=== PATIENT | female | born 1995 | race Caucasian/White ===

== ENCOUNTER 2018-09-07 08:31 | Outpatient (CLI) | payer MEDICAID, SELFPAY ==
[2018-09-07 09:33] LABS: HCG Quant, Pregnancy 12697 mIU/mL (1-3)
== END 2018-09-07 08:51 ==
PROVIDERS: Visit Provider Nurse Practitioner Family
DX: Z32.01 Encounter for pregnancy test, result positive (principal); Z34.01 Encounter for supervision of normal first pregnancy, first trimester
CPT/HCPCS: 36415; 84702

== ENCOUNTER 2019-12-28 08:46 | Emergency (ER) | payer MEDICAID, SELFPAY ==
[2019-12-28 09:01] VITALS: BP 158/91; PULSE 100; RESP 16; TEMP 36.8; O2SAT 97
--- NOTE | 2019-12-28 09:08 | ED.GENADUL_ITS ---
Discharge Plan Disposition Patient Disposition: HOME Condition: Stable Discharge Details Chief Complaint: Sorethroat Clinical Impression: Pharyngitis Primary Care Provider: ArianeLocal ED Provider: Long Klein Home Meds and New Rx's Prescriptions: No Action No Known Home Meds RF: 0 Discharge Instructions Instructions: Pharyngitis (ED) Additional Instructions: Rapid strep is negative, culture is pending. [id number] medications as directed for symptomatic control. Practice good handwashing. Please watch for new or worsening symptoms and return to the ER for any concerns Medical Decision Making 24-year-old female presents with a week or 2 history of mild URI-like symptoms, dry cough, ear pain, sore throat. Primarily concerned of the sore throat. She appears well, nontoxic. She is afebrile. Her posterior pharynx is with minimal erythema but there are no exudates, swelling, and midline shifting. Airway is patent. Will obtain rapid strep test Rapid strep test negative, culture pending. Made patient aware of findings. Likely viral in nature. Will treat with [id number] medications. She is comfortable with this plan and has no additional questions or concerns HPI General Mode of arrival: ambulatory . Date/Time Provider Initiated Documentation: 12/28/19 08:53 . Limitations to Documentation: no limitations . Information obtained by: patient . HPI Narrative: 24-year-old female with no past medical history presents to the ER for a week or 2 of the sore throat, mild dry cough and right ear discomfort. She reports that she has had a positive strep throat contacts and is concerned that she may have the same. Has not taken any medications today for her symptoms. Denies any fever, neck pain, productive cough, nausea, vomiting, skin rash, bowel or bladder issues Related Data Home Medications Medication Instructions Recorded Confirmed Unknown [No Known Home Meds] 12/28/19 12/28/19 Allergies Allergy/AdvReac Type Severity Reaction Status Date / Time No Known Allergies Allergy Unverified 12/28/19 09:04 General Stated Complaint: Sorethroat MAGDIEL: 4 Review of Systems Constitutional Constitutional: Denies fever(s) Eyes Eyes: Denies eye discharge ENT Ears, Nose, Mouth, and Throat: Reports sore throat Cardiovascular Cardiovascular: Denies chest pain and Denies dyspnea Respiratory Respiratory: Reports cough and Denies dyspnea Gastrointestinal Gastrointestinal: Denies abdominal pain, Denies nausea and Denies vomiting Genitourinary Genitourinary: Denies dysuria Musculoskeletal Musculoskeletal: Denies myalgias Integumentary/Breasts Skin/Breast: Denies rash Exam Const General: cooperative, healthy appearing, comfortable and no acute distress Orientation: alert and awake [facility] Head: normal to inspection, normocephalic and atraumatic Ears: TM's normal bilaterally and EAC's normal Mouth: moist mucous membranes Throat: posterior oropharynx abnormal erythema (Mild); no edema and no exudates Eyes Conjunctivae: conjunctivae normal Neck Neck: normal visual inspection, full ROM, no lymphadenopathy, no meningeal signs, trachea midline and supple Resp Effort & Inspection: normal respiratory effort and able to speak in complete sentences Auscultation: clear to auscultation bilaterally Cardio Rate: regular rate Rhythm: regular rhythm Skin General skin exam: no rashes or lesions noted Neuro General: alert, awake, moves all extremities and no focal motor deficits Sensory Exam: no sensory deficits noted Psych Appearance: grossly normal Mental Status: mental status grossly normal Course Vital Signs Vital signs: Vital Signs Temperature 36.8 C 12/28/19 09:01 Pulse 100 H 12/28/19 09:01 Respiratory Rate 16 12/28/19 09:01 Blood Pressure 158/91 H 12/28/19 09:01 Pulse Oximetry 97 12/28/19 09:01 Temperature 36.8 C 12/28/19 09:01 Temperature Source Skin 12/28/19 09:01 Pulse 100 H 12/28/19 09:01 Respiratory Rate 16 12/28/19 09:01 Respiratory Effort Non-Labored 12/28/19 09:01 Blood Pressure 158/91 H 12/28/19 09:01 Blood Pressure Position Sitting 12/28/19 09:01 Pulse Oximetry 97 12/28/19 09:01 Oxygen Delivery Method Room Air 12/28/19 09:01 Oxygen Flow Rate 0 12/28/19 09:01 Pain Level 5 12/28/19 09:01
== END 2019-12-28 09:28 | disposition home or self-care (01) ==
PROVIDERS: Emergency Provider Physician Assistant
DX: J02.8 Acute pharyngitis due to other specified organisms (principal); R05 Cough
CPT/HCPCS: 87880; 99282; 87081

== ENCOUNTER 2020-05-11 14:30 | Emergency (ER) | payer MEDICAID, SELFPAY ==
[2020-05-11 14:38] VITALS: BP 119/79; PULSE 90; RESP 18; TEMP 36.4; O2SAT 97
--- NOTE | 2020-05-11 15:33 | DI.RAD_ITS ---
EXAM: XR PORTABLE CHEST AP CLINICAL HISTORY: SOB, Exposed to COVID TECHNIQUE: 2D digital imaging was performed. COMPARISON: No exams were available for comparison FINDINGS: MEDIASTINUM: Normal. HEART: Normal. PULMONARY VASCULATURE: Normal. LUNGS: Clear. PLEURAL SPACE: No pleural effusion or pneumothorax. BONE:Within normal limits for the patient's age. OTHER FINDINGS:Normal. IMPRESSION: No acute pulmonary findings. DATA REPOSITORY: RADIATION DOSE DELIVERED:
--- NOTE | 2020-05-11 15:55 | W.ED.GENAD ---
Discharge Plan Disposition Patient Disposition: HOME Condition: Good Discharge Details Chief Complaint: Sorethroat Clinical Impression: URI (upper respiratory infection) Primary Care Provider: Ariane,Local ED Provider: Jenny Sebastian Home Meds and New Rx's Prescriptions: No Action No Known Home Meds RF: 0 Discharge Instructions Instructions: Upper Respiratory Infection (ED) Additional Instructions: Continue to encourage water intake. Tylenol as needed for discomfort or fevers. You have been COVID-19 tested today. We will contact you with results. Please generally take 3 to 4 days to come back. If you do not hear, please call the hospital. Please continue to self quarantine to prevent the spread of infection. If you develop difficulty breathing, shortness of breath, chest pain or other new/worsening symptoms please seek care urgently once again. Please follow-up with primary care in the next 1 to 2 weeks if not improving. 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 She reports yesterday she had T-max of 99 ?F. States she began having cough, sore throat and body aches. She denies any GI upset. Patient is on Nexplanon and does not believe that she is . She reports that her primary concern is potential for COVID-19. She reports that her fianc? works with gentleman who is presumed COVID positive. Juan Pablo? also had similar illness and was recently tested and found to be negative for COVID-19. However, patient is requesting testing and needs to have this completed prior to being able to go back to work. She denies any chest pain, shortness of breath or difficulty breathing. Exam, patient appears to be resting comfortably. She appears to be in no respiratory distress stress. She is speaking in full sentences. No rash. Moist mucous membranes. No abnormalities in posterior oropharynx. No findings to suggest Streptococcus. No nuchal rigidity. Plan for x-ray given cough. FINDINGS: MEDIASTINUM: Normal. HEART: Normal. PULMONARY VASCULATURE: Normal. LUNGS: Clear. PLEURAL SPACE: No pleural effusion or pneumothorax. BONE:Within normal limits for the patient's age. OTHER FINDINGS:Normal. IMPRESSION: No acute pulmonary findings. Discussed these findings with the patient. At this point, patient appears nontoxic, stable vital signs and ready for discharge. She was COVID tested here. We will contact her with any results. She was given return precautions. Patient will quarantine until she has her results and recommendations. Advise follow-up with primary care if 1 week if not improving. All of her questions and concerns were addressed and she is been this plan. Work note will be given. HPI General Mode of arrival: ambulatory. Date/Time Provider Initiated Documentation: 05/11/20 14:43. Limitations to Documentation: no limitations. Information obtained by: patient and RN notes reviewed. History of Present Illness 25 year old F presents to the emergency department with the chief complaint of URI symptoms, described as moderate, with intensity rated at 7. Quality is described as aching (diffuse body aches), Patient reports no radiation. Patient started experiencing this day(s) (2) and it has been constant. No relieving factors improve symptom(s), No exacerbating factors reported . Patient notes cough and fever/chills (T max 99*F); denies chest pain, headaches, loss of appetite, nausea/vomiting, rash, shortness of breath and weakness. Patient did receive the following treatments prior to arrival, none Related Data Home Medications Medication Instructions Recorded Confirmed Unknown [No Known Home Meds] 12/28/19 12/28/19 Allergies Allergy/AdvReac Type Severity Reaction Status Date / Time No Known Allergies Allergy Unverified 12/28/19 09:04 General Stated Complaint: Sorethroat MAGDIEL: 3 Review of Systems Constitutional Constitutional: Reports as per HPI, Denies chills, Reports fatigue, Reports fever(s) and Denies headache(s) Eyes Eyes: Reports as per HPI, Denies eye discharge and Denies irritation ENT Ears, Nose, Mouth, and Throat: Reports as per HPI and Denies headache(s) Cardiovascular Cardiovascular: Reports as per HPI, Denies chest pain and Denies dyspnea Respiratory Respiratory: Reports as per HPI, Reports cough, Denies hemoptysis and Denies dyspnea Gastrointestinal Gastrointestinal: Reports as per HPI, Denies abdominal pain, Denies change in bowel habits, Denies nausea and Denies vomiting Integumentary/Breasts Skin/Breast: Reports as per HPI and Denies rash Neurologic Neurologic: Reports as per HPI and Denies headache(s) Endocrine Endocrine: Reports fatigue [facility] Social History Smoking/Tobacco Use Status: Former Tobacco Use Alcohol Intake: current Alcohol Intake frequency: holidays/special occasions only Drug use: Daily Substance use type: marijuana Do you feel safe at home: Yes Do you feel safe in your relationship?: Yes Exam Const General: cooperative, healthy appearing, comfortable, no acute distress, well developed and well groomed Nutritional Appearance: average body habitus and well nourished Orientation: alert and awake [facility] Head: normal to inspection, normocephalic and atraumatic Ears: hearing grossly normal bilaterally, external ears normal and TM's normal bilaterally General nose exam: external nose normal and nares normal Face and sinus: normal facial exam, sinuses nontender and face symmetric Mouth: oral mucosae normal, lip normal, tongue normal, oropharynx normal and moist mucous membranes Teeth and gingiva: dentition normal Throat: posterior oropharynx normal, tonsils normal and uvula midline Eyes General: appearance normal, both eyes and all related structures Neck Neck: normal visual inspection, full ROM, no lymphadenopathy and no meningeal signs Resp Effort & Inspection: normal respiratory effort, able to speak in complete sentences and no respiratory distress Cardio Rate: regular rate Rhythm: regular rhythm Skin General skin exam: no rashes or lesions noted Neuro General: patient alert and patient awake Cognition: normal cognition Speech: speech normal Gait: normal gait Psych Appearance: grossly normal and well kempt Mental Status: mental status grossly normal Speech and Movement: speech and movement normal Course Vital Signs Vital signs: Vital Signs Temperature 36.4 C L 05/11/20 14:38 Pulse 90 05/11/20 14:38 Respiratory Rate 18 05/11/20 14:38 Blood Pressure 119/79 05/11/20 14:38 Pulse Oximetry 97 05/11/20 14:38 Temperature 36.4 C L 05/11/20 14:38 Temperature Source Temporal Artery Scan 05/11/20 14:38 Pulse 90 05/11/20 14:38 Respiratory Rate 18 05/11/20 14:38 Respiratory Effort 05/11/20 14:45 Blood Pressure 119/79 05/11/20 14:38 Blood Pressure Position Sitting 05/11/20 14:38 Pulse Oximetry 97 05/11/20 14:38 Oxygen Delivery Method Room Air 05/11/20 14:38 Oxygen Flow Rate 0 05/11/20 14:38 Pain Level 7 05/11/20 14:38 Lab/Test Results Lab/Test Results: Laboratory Tests Range/Units 05/11/20 15:01 COVID-19 PCR Cancelled Nasopharyn COVID-19 PCR Cancelled Ref Test Perform Site Cancelled
[2020-05-11 16:22] VITALS: BP 119/79; PULSE 90; RESP 18; TEMP 36.4; O2SAT 97
--- NOTE | 2020-05-14 17:12 | NUR.NOTE ---
Nursing Note: Patient called inquiring about COVID results. Results still pending. Provided negative Strep results. Verified patient name and prior to releasing results.
[2020-05-15 21:51] LABS: SARS-CoV-2 RNA Undetected (Undetected); SARS-CoV-2 Specimen Source Nasopharynx
--- NOTE | 2020-05-17 13:24 | NUR.NOTE ---
pt called regarding covid test. negative result given to pt.Nursing Note:
== END 2020-05-11 16:30 | disposition home or self-care (01) ==
LOC: ER 16:51
PROVIDERS: Registered Nurse Emergency; Emergency Provider Physician Assistant
DX: J06.9 Acute upper respiratory infection, unspecified (principal); R50.9 Fever, unspecified; R05 Cough; Z11.59 Encounter for screening for other viral diseases
CPT/HCPCS: 87880; 99283; U0003; 71045; 87081

== ENCOUNTER 2021-01-14 08:09 | Emergency (ER) | payer MEDICAID, SELFPAY ==
[2021-01-14 08:13] VITALS: BP 114/95; O2SAT 97
--- NOTE | 2021-01-14 08:26 | ED.GENADUL_ITS ---
Discharge Plan Disposition Patient Disposition: HOME Condition: Stable Discharge Details Clinical Impression: Ear pain, left Primary Care Provider: Ariane,Local ED Provider: Gris Lynch Home Meds and New Rx's Prescriptions: No Action Nexplanon 68 mg Implant 1 implant SUBDERMAL ONCE RF: 0 Discharge Instructions Instructions: Earache (ED) Additional Instructions: Please return immediately to the emergency department if you develop any new or worsening symptoms, if your condition does not improve as expected, or if you become otherwise concerned. It is extremely important that you call soon as possible to make an appointment to be seen in follow-up for this visit by your primary care doctor. Stand Alone Forms: Work Release Medical Decision Making Georgette Soni is a 25-year-old woman without reported history of medical problems who presented to emergency department with left ear pain since last night, also with mild left-sided sore throat and sensation of lymph node enlargement in the left submandibular region. On exam patient is very well and nontoxic-appearing. Normal examination of the oropharynx. Normal examination of bilateral canals and TMs. Normal examination of the neck without lymphadenopathy. Concern for possible viral etiology, nonspecific referred pain, other. Exam/history at this time is not consistent with bacterial otitis media, bacterial pharyngitis, epiglottitis, prostatitis, mastoiditis, meningitis, other acute emergent medical condition. Patient offered Covid testing, ibuprofen. Patient declined Covid testing stating that she was Covid tested 2 weeks ago and prefers not to be Covid tested again. She declines ibuprofen stating that she has ibuprofen at home. I had a lengthy discussion with Patient regarding return to emergency department precautions, home care, and importance of outpatient follow-up. Pt verbalizes understanding of the plan and is amenable. Patient discharged to home with clear plan for outpatient follow-up. All questions were answered. Disposition decision was made weighing the risks and benefits of hospitalization versus outpatient treatment, the risk for further decompensation, and the patient's wishes. Medical Records Medical records reviewed: Yes I reviewed the patient's medical records. HPI General Mode of arrival: ambulatory . Date/Time Provider Initiated Documentation: 01/14/21 08:25 . Limitations to Documentation: no limitations . Information obtained by: patient, RN notes reviewed and old records reviewed . HPI Narrative: Georgette Soni is a 25-year-old woman without reported history of medical problems presenting to the emergency department with left-sided ear pain. Patient reports that last night she noticed pain in her left ear. Patient also reports that since last night she has had mild pain in the left side of her throat like a lymph node under her jaw on the left may be swollen. Patient reports that she otherwise feels well and in her usual state of health. No history of ear problems or recurrent ear infections. No trauma. She denies any other pain, fevers, shortness of breath, cough, difficulty swallowing, numbness, weakness, rash, vomiting, diarrhea. Has been eating and drinking as usual. 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 Related Data Home Medications Medication Instructions Recorded Confirmed etonogestrel [Nexplanon] 1 implant SUBDERMAL ONCE 01/14/21 01/14/21 Allergies Allergy/AdvReac Type Severity Reaction Status Date / Time No Known Allergies Allergy Unverified 01/14/21 08:15 General Stated Complaint: EarProblem MAGDIEL: 4 Review of Systems Narrative: Constitutional: denies fevers Eyes: denies eye pain ENT: denies dental pain, reports left-sided ear pain and mild left-sided sore throat as per HPI Cardiovascular: denies chest pain Respiratory: denies SOB, cough GI: denies abdominal pain, vomiting, diarrhea : denies flank pain MSK: denies back pain, neck pain, arthralgias, myalgias Skin: denies rash Neuro: denies headaches, numbness, weakness PFSH Social History Smoking/Tobacco Use Status: Current every day Tobacco Type: e-cigarettes Smoking risk assessment performed?: Yes Alcohol Intake: current Alcohol Intake frequency: holidays/special occasions only Drug use: Rarely Substance use type: marijuana Do you feel safe at home: Yes Do you feel safe in your relationship?: Yes Exam Narrative Exam Narrative: Constitutional: well and [id number], pleasant, conversing normally HENT: head atraumatic/normocephalic/normal inspection, mucous membranes moist, normal posterior pharynx and tonsils without erythema/edema/exudate, no intraoral lesion, normal voice, no drooling, no pooling of secretions, no tongue elevation, bilateral canals normal, bilateral TMs normal without injection, dullness or effusion, no mastoid tenderness to palpation bilaterally Eyes: conjunctiva normal, sclera normal, pupils 3mm b/l Neck: no stridor, full painless ROM, trachea midline, no anterior or posterior lymphadenopathy no tenderness to palpation of the submandibular area or anterior neck, no overlying skin changes Resp: normal work of breathing, speaking in full sentences Cardio: normal rate, normal rhythm Skin: warm, dry, normal color, no rash Neuro: alert, not altered, grossly non-focal, normal tone Ext: Moving all extremities equally Psych: normal mood, normal affect, normal behavior Course Vital Signs Vital signs: Vital Signs Blood Pressure 114/95 H 01/14/21 08:13 Pulse Oximetry 97 01/14/21 08:13 Temperature Source Skin 01/14/21 08:13 Respiratory Effort 01/14/21 08:18 Blood Pressure 114/95 H 01/14/21 08:13 Blood Pressure Position Sitting 01/14/21 08:13 Pulse Oximetry 97 01/14/21 08:13 Oxygen Delivery Method Room Air 01/14/21 08:13 Oxygen Flow Rate 0 01/14/21 08:13 Pain Level 8 01/14/21 08:19
== END 2021-01-14 08:46 | disposition home or self-care (01) ==
PROVIDERS: Emergency Provider Student in an Organized Health Care Education/Training Program
DX: H92.02 Otalgia, left ear (principal)
CPT/HCPCS: 99282